=== PATIENT | male | born 2000 | race Caucasian/White ===

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

== ENCOUNTER 2023-03-30 16:50 | Emergency (ER) | payer OTHER ==
[2023-03-30 16:56] VITALS: RESP 18; TEMP 98.3; BMI 25.0
[2023-03-30 18:33] VITALS: BP 120/84; PULSE 84
[2023-03-30 18:48] LABS: URINE APPEARANCE CLEAR; URINE BILIRUBIN NEGATIVE (NEGATIVE); URINE COLOR YELLOW; URINE GLUCOSE (UA) NEGATIVE (NEGATIVE); URINE KETONE NEGATIVE (NEGATIVE); URINE LEUK ESTERASE NEGATIVE (NEGATIVE); URINE NITRITE NEGATIVE (NEGATIVE); URINE PROTEIN NEGATIVE (NEGATIVE); URINE UROBILINOGEN 0.2 mg/dL (0.2-1.0)
== END 2023-03-30 18:40 | disposition home or self-care (01) ==
LOC: JER 16:50
DX: N50.811 Right testicular pain (principal); N44.00 Torsion of testis, unspecified
CPT/HCPCS: 36415; 76870-TC; 81003; 87086; 87491; 87591; 99284-25

== ENCOUNTER 2023-06-17 13:52 | Emergency (ER) | payer OTHER ==
[2023-06-17 14:09] VITALS: RESP 18; BMI 25.8
[2023-06-17 15:45] LABS: THROAT:GRP A STREP NOT DETECTED (NOTDETECTED)
[2023-06-17 16:32] VITALS: BP 123/81; PULSE 95; TEMP 98
== END 2023-06-17 16:32 | disposition home or self-care (01) ==
LOC: JERFT 13:52
DX: J06.9 Acute upper respiratory infection, unspecified (principal); B34.9 Viral infection, unspecified; R09.81 Nasal congestion; R07.0 Pain in throat; R05.9 Cough, unspecified; Z20.822 Contact with and (suspected) exposure to COVID-19
CPT/HCPCS: 0241U-QW; 87651; 99283-25